=== PATIENT | female | born 1985 | race African-American/Black ===

== ENCOUNTER 2019-11-16 14:21 | Outpatient (CLI) | payer OTHER, SELFPAY ==
--- NOTE | ~2019-11-16 | MM_ITS ---
EXAMINATION: MM diagnostic danielle BI w debbie HISTORY: Bilateral axillary masses TECHNIQUE: Craniocaudal, mediolateral, and mediolateral oblique 3-D tomosynthesis images of the breas ts were performed and synthetic 2-D images were generated. CAD analysis was submitted and interpreted . COMPARISON: None, baseline BREAST PARENCHYMAL COMPOSITION: The breasts are almost entirely fatty. FINDINGS: There is no evidence of suspicious mass, calcification, or architectural distortion in eit her breast to suggest malignancy. There is no mammographic finding to account for the mildly enlarge d axillary lymph nodes seen on recent ultrasound. No definite mammographically detected axillary lym phadenopathy. IMPRESSION: 1. No mammographic evidence of malignancy or mammographic finding to account for the mildly enlarged axillary lymph nodes on recent ultrasound examination. Given the bilateral nature of the findings on ultrasound, benign process such as reactive lymph nodes is likely. Would recommend continued clinical follow-up with repeat ultrasound if necessary. If finding persists without resolution, ultrasound-gu ided fine-needle aspiration or core needle biopsy would be recommended to evaluate for malignancy suc h as lymphoma/leukemia. BI-RADS Category 1: Negative Reviewed, dictated and finalized at location A. WORKER IMPRESSION: 1. No mammographic evidence of malignancy or mammographic finding to account fo r the mildly enlarged axillary lymph nodes on recent ultrasound examination. Gi olegario the bilateral nature of the findings on ultrasound, benign process such as reactive lymph nodes is likely. Would recommend continued clinical follow-up wi th repeat ultrasound if necessary. If finding persists without resolution, ultr asound-guided fine-needle aspiration or core needle biopsy would be recommended to evaluate for malignancy such as lymphoma/leukemia. BI-RADS Category 1: Negative
== END 2019-11-16 14:22 ==
PROVIDERS: Visit Provider Obstetrics & Gynecology
DX: N63.10 Unspecified lump in the right breast, unspecified quadrant (principal); N63.20 Unspecified lump in the left breast, unspecified quadrant; R92.2 Inconclusive mammogram
CPT/HCPCS: 77062; 77066; G0279

== ENCOUNTER 2020-01-16 08:05 | Emergency (ER) | payer OTHER, SELFPAY ==
--- NOTE | 2020-01-16 08:19 | ED.GENADULT ---
HPI - General Adult General Chief complaint: Eye Problems Stated complaint: Swollen/Redness right eye Time Seen by Provider: 01/16/20 08:19 Source: patient Mode of arrival: ambulatory Limitations: no limitations History of Present Illness HPI narrative: 34-year-old female patient presents to the [facility] with complaints right upper lid eye pain since last night. Patient states it came on suddenly last night she just started feeling type of heaviness to the upper eyelid with some itchiness. Patient states that she wears glasses does not wear contacts. Patient states that she does not have any history of seasonal allergies and has not been outside at all recently. Patient states that she does not wear eye make-up. Patient states that she did take some Benadryl and some allergy medication along with a warm compress over yesterday. Patient states slightly blurred vision but no pain to the actual eye itself. No pain with movement to the eye. No discharge coming from the eye. Patient denies any fevers or flulike symptoms. Related Data Home Medications Medication Instructions Recorded Confirmed Loestrin 01/16/20 Allergies Allergy/AdvReac Type Severity Reaction Status Date / Time No Known Allergies Allergy Verified 01/16/20 08:28 Review of Systems Review of Systems: Narrative: CONSTITUTIONAL: Denies fever, chills, or sweats. EYES: Positive right eye visual changes, eyelid redness, denies discharge. ENT: Denies rhinorrhea, congestion, sore throat, or otalgia. CARDIOVASCULAR: Denies chest pain, palpitations, or edema. RESPIRATORY: Denies cough or dyspnea. GASTROINTESTINAL: Denies abdominal pain, nausea, vomiting, or diarrhea. GENITOURINARY: Denies dysuria or hematuria. SKIN: Denies rash or itching. MUSCULOSKELETAL: Denies back pain, joint pain, or myalgia. NEUROLOGIC: Denies headache, numbness, or weakness. PSYCHIATRIC: Denies anxiety or depression. [facility] Past Medical History Medical History (Updated 01/16/20 @ 08:33 by GRISEL Avalos) Depression Diabetes Social History Social History Smoking status: Never smoker Gender identity (if verbalized by the patient): Female Comments At the time of my signature I agree with nursing past medical history, surgical, social, and family history. There is no relevant family history pertinent to the presenting complaint. Exam Narrative: Exam Narrative: GENERAL: Well-appearing, well-nourished, and in no acute distress. HEAD: Normocephalic, atraumatic. EYES: PERRLA and EOM intact without limitation or complaint of pain, right upper eyelid swelling with erythema, warmth, no tenderness noted, no obvious deformity. No crusting or swelling.no tearing or draining.No photophobia. No nystagmus No FB or lesion on lid eversion. There does appear that there might be small stye forming to the lateral corner of the upper lid on the right eye. Corneas grossly clear, no obvious FB or hyphens/hypopyon. No injection to sclera. Lids and lashes clear. ENT: Nares clear, no rhinorrhea or epistaxis. Mucous membranes moist. NECK: Supple. No lymphadenopathy CHEST: Clear to auscultation. No respiratory distress. HEART: Regular rate and rhythm. No murmur heard. Normal peripheral pulses. ABDOMEN: Soft, nontender, nondistended, normal active bowel sounds. EXTREMITIES: Normal range of motion. No edema. SKIN: Warm, dry, no rash. NEURO: No focal deficits. Alert and oriented x3. Course Vital Signs Vital signs: Vital Signs Temperature 36.8 C 01/16/20 08:21 Pulse Rate 75 01/16/20 08:21 Respiratory Rate 16 01/16/20 08:21 Blood Pressure 125/76 01/16/20 08:21 Pulse Oximetry 100 01/16/20 08:21 Temperature 36.8 C 01/16/20 08:21 Pulse Rate 75 01/16/20 08:21 Respiratory Rate 16 01/16/20 08:21 Blood Pressure 125/76 01/16/20 08:21 Pulse Oximetry 100 01/16/20 08:21 Vital signs reviewed. Medical Decision Ma
[2020-01-16 08:21] VITALS: BP 125/76; PULSE 75; RESP 16; TEMP 36.8; O2SAT 100
== END 2020-01-16 08:36 | disposition home or self-care (01) ==
PROVIDERS: Emergency Provider Nurse Practitioner Family
DX: H00.021 Hordeolum internum right upper eyelid (principal)
CPT/HCPCS: 99213; G0463

== ENCOUNTER 2020-05-13 12:08 | Outpatient (CLI) | payer OTHER, SELFPAY ==
[2020-05-13 12:48] LABS: Alanine Aminotransferase 12 U/L (4-35); Albumin Level 4.6 g/dL (3.5-5.1); Alkaline Phosphatase 57 U/L (38-126); Amylase 91 U/L (30-110); Aspartate Amino Transferase 19 U/L (14-36); Bilirubin,Total 0.2 mg/dL (0.2-1.3); Lipase 109 U/L (23-300)
== END 2020-05-13 12:09 | disposition home or self-care (01) ==
PROVIDERS: Visit Provider Surgery
DX: K81.1 Chronic cholecystitis (principal)
CPT/HCPCS: 36415; 80076; 82150; 83690; 86850; 86900; 86901

== ENCOUNTER 2020-05-18 00:38 | Outpatient (CLI) | payer OTHER, SELFPAY ==
[2020-05-18 18:11] LABS: SARS-CoV-2 RNA PCR Negative
== END 2020-05-18 00:39 | disposition home or self-care (01) ==
LOC: ANHCOVIDDT 00:39
PROVIDERS: Visit Provider Surgery
DX: Z01.812 Encounter for preprocedural laboratory examination (principal); Z11.59 Encounter for screening for other viral diseases
CPT/HCPCS: 87635; C9803; U0003

== ENCOUNTER 2020-05-21 01:50 | Day surgery (SDC) | payer OTHER, SELFPAY ==
[2020-05-06 15:53] VITALS: BMI 32.5
[2020-05-21] VITALS (8 sets, daily range): BP systolic 96–129; BP diastolic 50–85; PULSE 65–102; RESP 10–18; TEMP 36.3; O2SAT 99–100
[2020-05-21] MEDS: ACETAMINOPHEN 500 MG TABLET 1000 MG PO (07:25)
[2020-05-21] MEDS: KETOROLAC 15 MG/ML VIAL (*BKC) IV PUSH (07:32)
[2020-05-21] MEDS: LACTATED RINGERS 1,000 ML 30 ML IV CONT ×2 (07:35→10:07)
--- NOTE | 2020-05-21 08:04 | P.PNAN_ITS ---
Anes - Initial Pre Proc Eval Procedure: Operation Date: 05/21/20 09:00 Proposed Procedures p Laparoscopic Cholecystectomy - Donna Bazzi MD Date/Time: 05/21/20 08:04 Surgeon: Donna Bazzi MD Pre Op Diagnosis: Chronic Cholecystitis Patient Data Age: 35 Gender: F Height: 5 ft 2 in Weight: 80.5 kg Allergies Allergy/AdvReac Type Severity Reaction Status Date / Time No Known Allergies Allergy Verified 05/21/20 07:40 Home Medications Medication Instructions Recorded Confirmed Type No Home Medications 05/06/20 05/21/20 History Patient hx anesthesia problems: none Family hx anesthesia problems: none [facility] Past Medical History Medical History Depression while Diabetes while Surgical History Surgical History History of Social History Social History Smoking status: Never smoker Alcohol intake: never Substance use: never Living arrangements: with family 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 Questions were solicited and answers provided to the satisfaction of the patient/family/POA.
--- NOTE | 2020-05-21 08:53 | WPDHPUPDATE1 ---
History and Physical Update Update Date/Time: 05/21/20 08:53 History and Physical has been reviewed, including an updated exam of the patient. There are NO changes in the patient's condition. Risks, benefits, and alternatives have been discussed and questions answered. Patient agrees to proceed with procedure.
--- NOTE | 2020-05-21 09:01 | PM.IMHP ---
H&P: HPI History of Present Illness Date/Time: 05/21/20 09:01 Chief complaint: Chronic Cholecystitis Narrative: Kael Caldwell is a 35 year old female that previously presented to office c/o postprandial RUQ/epigastric abd pain, assoc c nausea, bloating. Workup including imaging significant for cholecystitis, cholelithiasis. Pt c positive FH of biliary dz. Review of Systems Constitutional: Constitutional: Denies anorexia, Denies chills, Denies fatigue, Denies headache(s), Denies malaise, Denies poor appetite, Denies weight gain and Denies weight loss Eyes: Eyes: Denies change in vision ENT: Denies headache(s), Denies hearing loss and Denies sore throat Cardiovascular: Cardiovascular: Denies chest pain, Denies palpitations and Denies dyspnea Respiratory: Respiratory: Denies cough and Denies dyspnea Gastrointestinal: Gastrointestinal: Reports abdominal pain, Reports bloating, Denies change in stool character, Denies constipation, Denies diarrhea, Reports nausea and Denies vomiting Genitourinary: Genitourinary: Denies urinary frequency, Denies dysuria and Denies urinary urgency Musculoskeletal: Musculoskeletal: Reports no additional musculoskeletal complaints Integumentary/Breasts: Skin/Breast: Denies pruritus, Denies lesions and Denies wounds Neurologic: Denies confusion and Denies headache(s) Psychiatric: Psychiatric: Reports no additional psychiatric complaints and Denies confusion Endocrine: Endocrine: Reports no additional endocrine complaints, Denies fatigue and Denies palpitations Hematologic/Lymphatic: Hematologic/Lymphatic: Reports no additional hematologic/lymphatic complaints Allergic/Immunologic: Allergic/Immunologic: Reports no additional allergic/immunologic complaints [facility] Past Medical History Medical History Depression while Diabetes while Surgical History Surgical History History of Social History Social History Smoking status: Never smoker Alcohol intake: never Substance use: never Living arrangements: with family 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 Gender identity (if verbalized by the patient): Female Spiritual care concerns: No Meds Home Medications and Allergies Home Medications Medication Instructions Recorded Confirmed Type No Home Medications 05/06/20 05/21/20 History Allergies Allergy/AdvReac Type Severity Reaction Status Date / Time No Known Allergies Allergy Verified 05/21/20 07:40 Exam Const: General: cooperative, healthy appearing, no acute distress and well developed; No confusion Orientation/consciousness: patient oriented x3 and No confusion HENMT: Head: normal to inspection, normocephalic and atraumatic Mouth: Yes Normal oral and palatal mucosa present and Yes moist mucous membranes Teeth and gingiva: dentition normal Eyes: Conjunctivae: conjunctivae normal Pupils: Equal, round and reactive pupils present EOM: EOMs intact bilaterally Neck: Neck: normal visual inspection, full ROM, no lymphadenopathy, trachea midline and supple Lymphatic: no lymphadenopathy noted Chest: Chest palpation & inspection: normal inspection of the chest Resp: Effort & Inspection: normal respiratory effort Auscultation: clear to auscultation bilaterally Cardio: Jugular venous distension: no JVD Rate: regular rate Rhythm: regular rhythm Heart sounds: S1 normal heart sound present and S2 normal heart sound present Peripheral pulses: Peripheral pulses 2+ throughout GI: Inspection: normal to inspection GI Palp: Yes Soft to palpation, No Tenderness to palpation present (GI), No Guarding due to palpation present (GI), No Rigid due to palpation, No Hernia present and No Rebound tenderness present Percussion: Yes normal to percussion Auscult
[2020-05-21] MEDS: ceFAZolin 2 GM/D5W 50 ML 2 GM/50 ML BAG IVPB (09:05)
[2020-05-21] MEDS: BUPIVACAINE/EPINEPHRINE 0.5% 30 ML VIAL INFILTRATE (09:33)
--- NOTE | 2020-05-21 10:10 | PM.PROC ---
Procedure Note - Detailed Date of procedure: 05/21/20 Pre-op diagnosis: Chronic Cholecystitis Post-op diagnosis: same Procedure performed: laparoscopic cholecystectomy Description of procedure: The patient was taken to the operating room placed in the supine position. After adequate induction of general anesthesia, the patient was prepped and draped in normal sterile fashion. A time-out was then performed to verify the patient's identity as well as the procedure being performed. I then made a 5 mm incision in the infraumbilical region. Through this, a Veress needle was placed into the peritoneal cavity and CO2 gas was then insufflated. After adequate pneumoperitoneum was achieved, the Veress needle was removed and a 5 mm trocar was placed through this incision. I then placed the laparoscope through this trocar site and under direct visualization placed a further 12 mm subxiphoid port as well as 2 additional 5 mm ports in the right upper abdomen. The gallbladder was then identified and was noted to be slightly inflamed. I was able to place a grasper at the dome of the gallbladder and this was retracted anterior and cephalad up over the liver. A 2nd retractor was then placed at the infundibulum and retracted laterally, this allowed visualization of the triangle of Calot. I then was able to visualize the cystic duct in its entirety from its proximal insertion into the gallbladder, to its distal junction with the common hepatic/common bile duct junction. At this point, I carefully skeletonized the proximal cystic duct with the [place] dissector. I then clipped and transected the proximal cystic duct. Next I visualized the cystic artery. Again the artery was skeletonized, clipped, and transected. I then used the Bovie cautery to take down the peritoneal attachments of the gallbladder off the liver bed. Once the gallbladder specimen was completely detached, an endo-pouch was placed through the 12 mm port site. I then placed the gallbladder specimen into the Endo pouch and removed the endo-pouch from the 12 mm port site. The specimen will now be sent to pathology for further review. I then copiously irrigated the right upper quadrant. Hemostasis was noted in the liver bed, the clips were noted to be in good position on both the cystic duct stump and the cystic artery stump. No other pathology was noted in the right upper quadrant. I then moved the laparoscope to the subxiphoid port. No iatrogenic injury or other pathology was noted in the lower abdomen. At this point, the abdomen was desufflated and all ports removed. The fascia of the 12 mm subxiphoid port was closed with a 0 Vicryl figure of 8 suture. All port sites were then closed with 4.O Monocryl subcuticular sutures. Dermabond was placed on each incision. The patient tolerated the procedure well, was extubated in the operating room postoperative and will be transferred to the recovery room in stable condition. Implants: none Anesthesia: GETA Surgeon: Donna Bazzi MD Estimated blood loss (mL): 5 Drains: No Packing: No Pathology: yes Complications: No immediate complications Condition: stable Disposition: PACU Findings: mild cholecystitis
[2020-05-21] MEDS: ONDANSETRON INJ 4 MG/2 ML VIAL IV PUSH (12:14)
== END 2020-05-21 12:50 | disposition home or self-care (01) ==
PROVIDERS: PCP Physician Assistant; Visit Provider Surgery
PROC: 0FT44ZZ Resection of Gallbladder, Percutaneous Endoscopic Approach (ICD-10-PCS; CPT 47562; principal; 2020-05-21 09:00)
DX: K81.1 Chronic cholecystitis (principal); E66.9 Obesity, unspecified; Z68.32 Body mass index [BMI] 32.0-32.9, adult
CPT/HCPCS: 47562; 88304; A9270; J0330; J0690; J1100; J1885; J2250; J2405; J2704; J2710; J3010; J7030; J7120

== ENCOUNTER → 2020-11-06 16:02 | Outpatient (CLI) | payer OTHER, SELFPAY ==
--- NOTE | ~2020-11-06 | XR_ITS ---
XR finger 3rd LT min 2V DATE: 11/06/2020 16:42 INDICATION: Pain and swelling of third digit TECHNIQUE: 4 views COMPARISON: None FINDINGS: No fracture or dislocation, periosteal reaction or bone destruction. IMPRESSION: Negative Reviewed, dictated and finalized at location A. LE PASTER IMPRESSION: Negative
== END ==
PROVIDERS: PCP Physician Assistant; Visit Provider Physician Assistant
DX: M79.89 Other specified soft tissue disorders (principal)
CPT/HCPCS: 73140

== ENCOUNTER 2020-11-10 21:00 | Emergency (ER) | payer OTHER, SELFPAY ==
[2020-11-10 21:03] VITALS: BP 131/70; PULSE 92; RESP 16; TEMP 36.4; O2SAT 99
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
[2020-11-10 22:02] VITALS: BP 124/69; PULSE 86; RESP 16; O2SAT 100
== END 2020-11-10 22:10 | disposition home or self-care (01) ==
LOC: ANHED 21:51
PROVIDERS: Emergency Provider Emergency Medicine; PCP Physician Assistant
DX: S46.819A Strain of other muscles, fascia and tendons at shoulder and upper arm level, unspecified arm, initial encounter (principal); V43.52XA Car driver injured in collision with other type car in traffic accident, initial encounter
CPT/HCPCS: 99283

== ENCOUNTER 2021-02-06 16:29 | Emergency (ER) | payer OTHER, SELFPAY ==
[2021-02-06 16:55] VITALS: BP 120/64; PULSE 76; RESP 16; TEMP 36.6; O2SAT 100
--- NOTE | 2021-02-06 17:21 | ED.URI ---
HPI - URI/Sore Throat General Chief Complaint: Upper Respiratory Infection Stated Complaint: cold/flu symptoms Time Seen by Provider: 02/06/21 17:21 Source: patient and RN notes reviewed Mode of arrival: ambulatory Limitations: no limitations History of Present Illness HPI Narrative: 32-year-old female presents concern for sore throat, hoarse voice, sinus drainage, cough, general malaise that started today. Reports her child had similar symptoms and was seen in this clinic yesterday. Reports she has been using ibuprofen and tea for her throat discomfort. She denies fever, body aches, chills, sweats, loss of sense of taste or smell, shortness of breath. Denies any known exposure to Covid or strep throat. MD elicited complaint: cough Related Data Home Medications Medication Instructions Recorded Confirmed ergocalciferol (vitamin D2) 1,250 mcg PO 2XW 02/06/21 02/06/21 naproxen 500 mg PO BID PRN 02/06/21 02/06/21 norethindrone-e.estradiol-iron 1 tablet PO DAILY 02/06/21 02/06/21 [10/30 (28)] Allergies Allergy/AdvReac Type Severity Reaction Status Date / Time No Known Allergies Allergy Verified 02/06/21 17:21 Review of Systems Review of Systems: Narrative: CONSTITUTIONAL: Reports malaise. Denies chills, sweats, or fever. EYES: Denies visual changes, redness, or discharge. ENT: Reports rhinorrhea, congestion, sore throat. Denies sinus pain, otalgia CARDIOVASCULAR: Denies chest pain, palpitations, or edema. RESPIRATORY: Reports cough. Denies dyspnea. GASTROINTESTINAL: Denies abdominal pain, nausea, vomiting, diarrhea SKIN: Denies rash or itching. MUSCULOSKELETAL: Denies myalgia. NEUROLOGIC: Denies headache. 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 There is no relevant family history pertinent to the presenting complaint Exam Narrative: Exam Narrative: GENERAL: Well-appearing, well-nourished, and in no acute distress. HEAD: Normocephalic EYES: PERRLA, conjunctivae clear ENT: Nares clear, turbinates edematous and erythematous, clear discharge. Mucous membranes moist. TM pearly gulilen with dull light reflex bilaterally; no tragal tenderness. Oropharynx erythematous without lesions. Tonsils enlarged and without exudate, no drooling, mild hoarseness, no trismus, uvula midline. NECK: Supple. No lymphadenopathy CHEST: Clear to auscultation, breath sounds equal. No wheezing, rhonchi, rales, or stridor. No respiratory distress, speaks in full sentences. HEART: Regular rate and rhythm. No murmur heard. SKIN: Warm, dry, no rash. NEURO: Alert and oriented x3. PSYCH: Normal mood and affect Course Course Emergency Course: Patient is aware of diagnosis, understands and agrees to treatment plan. Anticipatory guidance given. Patient agrees to follow-up as directed and is aware of reasons to seek care at the emergency department. Portions of this record may have been created with voice recognition software Vital Signs Vital signs: Vital Signs Temperature 97.9 F 02/06/21 16:55 Pulse Rate 76 02/06/21 16:55 Respiratory Rate 16 02/06/21 16:55 Blood Pressure 120/64 02/06/21 16:55 Pulse Oximetry 100 02/06/21 16:55 Temperature 97.9 F 02/06/21 16:55 Pulse Rate 76
[2021-02-07 14:59] LABS: SARS-CoV-2 RNA PCR Negative
== END 2021-02-06 17:56 | disposition home or self-care (01) ==
PROVIDERS: Emergency Provider Nurse Practitioner
DX: J06.9 Acute upper respiratory infection, unspecified (principal); Z20.822 Contact with and (suspected) exposure to COVID-19
CPT/HCPCS: 87081; 87880; 99213; C9803; G0463; U0003; U0005

== ENCOUNTER 2021-10-13 09:23 | Emergency (ER) | payer OTHER, SELFPAY ==
[2021-10-13 09:34] VITALS: PULSE 74; RESP 16; TEMP 36.1; O2SAT 100
[2021-10-13 09:35] VITALS: BP 129/70; PULSE 74; RESP 16; TEMP 36.1; O2SAT 100
--- NOTE | 2021-10-13 10:26 | ED.EYEPROB ---
HPI - Eye Problem General Chief complaint: Eye Problems Stated complaint: Right Eye Pain Time Seen by Provider: 10/13/21 10:26 Source: patient, RN notes reviewed and old records reviewed Mode of arrival: ambulatory Limitations: no limitations History of Present Illness HPI Narrative: 36-year-old female presents to the [facility] with complaints of right eye pain for 2 days. Redness and swelling noted to the upper eyelid. No treatment prior to arrival. No blurry vision or change in vision. No trauma to the eye. MD chief complaint: eye pain and eye redness Related Data Home Medications Medication Instructions Recorded Confirmed ergocalciferol (vitamin D2) 1,250 mcg PO 2XW 02/06/21 10/13/21 naproxen 500 mg PO BID PRN 02/06/21 10/13/21 norethindrone-e.estradiol-iron 1 tablet PO DAILY 02/06/21 10/13/21 [10/30 (28)] Allergies Allergy/AdvReac Type Severity Reaction Status Date / Time No Known Allergies Allergy Verified 10/13/21 10:38 Review of Systems Review of Systems: All systems reviewed & are unremarkable except as noted in HPI and below Constitutional: Constitutional: Reports no additional constitutional complaints, Denies chills and Denies fever(s) Eyes: Eyes: Reports as per HPI, Denies change in vision and Denies photophobia Comments: Right upper eyelid redness, swelling ENT: Reports system reviewed and no additional complaints, except as documented Cardiovascular: Cardiovascular: Reports no additional cardiovascular complaints and Denies chest pain Respiratory: Respiratory: Reports no additional respiratory complaints Gastrointestinal: Gastrointestinal: Reports no additional gastrointestinal complaints Musculoskeletal: Musculoskeletal: Reports no additional musculoskeletal complaints Integumentary/Breasts: Skin/Breast: Reports system reviewed and no additional complaints, except as docu Neurologic: Reports system reviewed and no additional complaints, except as documented Psychiatric: Psychiatric: Reports no additional psychiatric complaints Allergic/Immunologic: Allergic/Immunologic: Reports no additional allergic/immunologic complaints [facility] Past Medical History Medical History (Updated 10/16/21 @ 08:40 by Cari Garcia) Depression while Diabetes while Surgical History Surgical History History of Hx laparoscopic cholecystectomy Social History Social History Smoking status: Never smoker Alcohol intake: never Substance use: never 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 There is no relevant family history pertinent to the patient complaint. Exam Const: General: healthy appearing, no acute distress and alert Nutritional Appearance: well nourished Orientation/consciousness: patient oriented x3 Limitations: no limitations HENMT: Head: normal to inspection Eyes: Conjunctivae: conjunctival abnormality right conjunctival injection (Stye noted) localized; without discharge Pupils: Equal, round and reactive pupils present EOM: EOMs intact bilaterally Direct Ophthalmoscopy: no photophobia Neck: Neck: normal visual inspection, no lymphadenopathy and no meningeal signs Chest: Chest palpation & inspection: normal inspection of the chest Resp: Effort & Inspection: normal respiratory effort Auscultation: clear to auscultation bilaterally Cardio: Rate: regular rate Rhythm: regular rhythm : General: Yes no CVA tenderness Back/Spine/Pelvis: Back: no CVA tenderness Skin: General skin exam: normal color Neuro: General: patient oriented x3, moves all extremities, no meningeal signs and no focal motor defic
== END 2021-10-13 10:50 | disposition home or self-care (01) ==
PROVIDERS: Emergency Provider Nurse Practitioner; PCP Physician Assistant
DX: H00.011 Hordeolum externum right upper eyelid (principal); H10.9 Unspecified conjunctivitis; L03.90 Cellulitis, unspecified; K21.9 Gastro-esophageal reflux disease without esophagitis
CPT/HCPCS: 99213; G0463

== ENCOUNTER 2022-03-14 08:37 | Emergency (ER) | payer OTHER, SELFPAY ==
[2022-03-14 08:52] VITALS: BP 125/76; PULSE 91; RESP 16; TEMP 36.8; O2SAT 99
--- NOTE | 2022-03-14 09:36 | ED.URI ---
HPI - URI/Sore Throat General Chief Complaint: Upper Respiratory Infection Stated Complaint: SORE THROAT Time Seen by Provider: 03/14/22 09:36 Source: patient Mode of arrival: ambulatory Limitations: no limitations History of Present Illness HPI Narrative: 36-year-old female presents with complaint of cough, sore throat, hoarse voice for 3 to 4 days. Afebrile. No shortness of breath or chest pain. Taking [id number] medications to treat cough. No other symptoms. All systems reviewed and negative except as noted above. Related Data Home Medications Medication Instructions Recorded Confirmed ergocalciferol (vitamin D2) 1,250 1,250 mcg PO 2XW 02/06/21 03/14/22 mcg (50,000 unit) capsule Allergies Allergy/AdvReac Type Severity Reaction Status Date / Time No Known Allergies Allergy Verified 03/14/22 09:45 Review of Systems Review of Systems: CONSTITUTIONAL: Denies fever, chills, or sweats. EYES: Denies visual changes, redness, or discharge. ENT: Denies rhinorrhea, congestion. Reports sore throat. Denies otalgia. CARDIOVASCULAR: Denies chest pain, palpitations, or edema. RESPIRATORY: Reports cough. Denies dyspnea. GASTROINTESTINAL: Denies abdominal pain, nausea, vomiting, or diarrhea. GENITOURINARY: Denies dysuria or hematuria. SKIN: Denies rash or itching. MUSCULOSKELETAL: Denies back pain, joint pain, or myalgia. NEUROLOGIC: Denies headache, numbness, or weakness. PSYCHIATRIC: Denies anxiety or depression. All other systems reviewed are negative, except as documented in HPI. 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 There is no relevant family history pertinent to the presenting complaint. Exam Narrative: GENERAL: This is a well-nourished, well-developed patient, in no apparent distress. HEAD: normocephalic, atraumatic. EYES: PERRL. Sclera clear/white. Vision is grossly intact. EARS: External ears normal, auditory canals clear and without drainage, mild fluid to bilateral TMs without erythema. NOSE: External nose normal with clear nasal drainage without erythema to nares. THROAT: Mucous membranes moist, clear postnasal drainage without erythema. Hoarse voice noted. No tonsillar swelling. NECK: Neck supple, non-tender without lymphadenopathy, masses or thyromegaly. CARDIOVASCULAR: Regular rate and rhythm without murmurs, gallops, or rubs. RESPIRATORY: Clear to auscultation. Breath sounds equal bilaterally. No wheezes, rales, or rhonchi. SKIN: warm, Dry, intact with no suspicious lesions or rash, good texture and turgor. NEURO: awake, alert, and oriented to person, place and time. There were no obvious focal neurologic abnormalities. EXTREMITIES: Normal range of motion to all extremities. Course Course Level of Care: Express Care Visit Vital Signs Vital signs: Vital Signs Temperature 36.8 C 03/14/22 08:52 Pulse Rate 91 03/14/22 08:52 Respiratory Rate 16 03/14/22 08:52 Blood Pressure 125/76 03/14/22 08:52 Pulse Oximetry 99 03/14/22 08:52 Oxygen Delivery Room Air 03/14/22 08:52 Temperature 36.8 C 03/14/22 08:52 Pulse Rate 91 03/14/22 08:52 Respiratory Rate 16 03/14/22 08:52 Blood Pressure 125/76 03/14/22 08:52 Pulse Oximetry 99 03/14/22 08:52 Oxygen Delivery Room Air 03/14/22 08:52 R
== END 2022-03-14 10:00 | disposition home or self-care (01) ==
PROVIDERS: Emergency Provider Nurse Practitioner Family
DX: J04.0 Acute laryngitis (principal)
CPT/HCPCS: 99213; G0463

== ENCOUNTER 2022-04-05 11:05 | Emergency (ER) | payer OTHER, SELFPAY ==
[2022-04-05 11:12] VITALS: BP 106/73; PULSE 74; RESP 18; TEMP 36.9; O2SAT 100
--- NOTE | 2022-04-05 11:43 | ECG_ITS ---
Measurements Intervals [place] Rate: 69 P: 54 NC: 161 QRS: 15 QRSD: 86 T: 7 QT: 405 QTc: 435 Interpretive Statements SINUS RHYTHM WITH SINUS ARRHYTHMIA LOW QRS VOLTAGE IN PRECORDIAL LEADS [QRS DEFLECTION < 1.0 mV IN CHEST LEADS] OTHERWISE WITHIN NORMAL LIMITS NO PREVIOUS ECG AVAILABLE FOR COMPARISON Electronically Signed On 04-06-2022 7:13:46 CDT by Jerome Llanes M.D.
--- NOTE | 2022-04-05 11:59 | ED.GENADULT ---
HPI - General Adult General Chief complaint: Dizziness <CIERRA Cuenca Last Filed: 04/05/22 20:02> Stated complaint: breast lump <CIERRA Cuenca Last Filed: 04/05/22 20:02> Time Seen by Provider: 04/05/22 11:18 <CIERRA Cuenca Last Filed: 04/05/22 20:02> Source: patient <CIERRA Cuenca Last Filed: 04/05/22 20:02> Mode of arrival: ambulatory <CIERRA Cuenca Last Filed: 04/05/22 20:02> Limitations: no limitations <CIERRA Cuenca Last Filed: 04/05/22 20:02> History of Present Illness HPI narrative: Patient is a 37 y/o female who presents to the ED with c/o R breast pain and dizziness. Patient reports she first noticed a small nonpainful lump in her R upper breast yesterday. She did not think much of it at first. Today, she reports having pain associated with some redness noted as well, which prompted her to come to the ED. She denies any nipple discharge. Patient also reports having mild dizziness today, described as a lightheadedness. She notes she is currently starting her menstrual cycle and has been on the Xulane contraceptive patch for the past 3 weeks. She placed a new patch today. She is unsure if dizziness could be a side effect of this. She denies any vision changes, headache, syncope, focal weakness, numbness, tingling. No chest pain, difficulty breathing, fever, chills. Patient had a mammogram in May 2021. She was found to have additional breast tissue in her axillary regions, but the testing was otherwise negative. OBGYN is Dr. Hugo. <CIERRA Cuenca Last Filed: 04/05/22 20:02> Related Data Home medications: Home Medications Medication Instructions Recorded Confirmed ergocalciferol (vitamin D2) 1,250 1,250 mcg PO 2XW 02/06/21 03/14/22 mcg (50,000 unit) capsule <CIERRA Cuenca Last Filed: 04/05/22 20:02> Allergies/adverse reactions: Allergies Allergy/AdvReac Type Severity Reaction Status Date / Time No Known Allergies Allergy Verified 04/05/22 11:20 <Virginia Calhoun PA-C - Last Filed: 04/05/22 20:02> Review of Systems Review of Systems: CONSTITUTIONAL: Denies fever, chills, or sweats. EYES: Denies visual changes. CARDIOVASCULAR: Denies chest pain. RESPIRATORY: Denies dyspnea. BREAST: Reports painful lump to R breast, overlying redness. Denies nipple discharge. GASTROINTESTINAL: Denies abdominal pain, nausea, vomiting. SKIN: Denies rash or itching. NEUROLOGIC: Reports lightheadedness. Denies headache, numbness, tingling, syncope, or focal weakness. 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 while <Virginia Calhoun PA-C - Last Filed: 04/05/22 20:02> Surgical History Surgical History: Surgical History History of Hx laparoscopic cholecystectomy <Virginia Calhoun PA-C - Last Filed: 04/05/22 20:02> Social History Social History: Social History Smoking status: Never smoker Alcohol intake: never Substance use: never 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 HEAD: Normocephalic, atraumatic. EYES: EOMI, PERRLA, conjunctiva clear. NECK: Supple. No adenopathy, no masses. BREAST: Small irregular area of erythema, tenderness over R upper breast above areola in region of 12oclock position. Small area of induration und
[2022-04-05 12:05] LABS: Basophils Percent Auto 0.5 % (0.2-1.2); Eosinophils Absolute Auto 0.3 K/mm3 (0-0.3); Eosinophils Percent Auto 6.5 % (0-4.4); Hematocrit 37.2 % (37.0-47.0); Hemoglobin 12.9 g/dL (12.0-15.0); Mean Corpuscular HGB Conc 34.7 g/dl (32-36); Mean Corpuscular Hemoglobin 27.2 pg (26-34); Mean Corpuscular Volume 78.3 fl (80-100); Mean Platelet Volume 10.2 fl (7.4-10.4); Monocytes Absolute Auto 0.4 K/mm3 (0.1-0.6); Monocytes Percent Auto 9.4 % (2.6-8.5); Neutrophils Absolute Auto 1.8 K/mm3 (1.3-6.7); Neutrophils Percent Auto 42.6 % (45.5-73.1); Platelet Count Result 327 k/mm3 (150-375); Red Blood Count 4.75 M/mm3 (4.2-5.4); Red Cell Distribution Width 13.4 % (11.5-14.5); White Blood Count 4.2 K/mm3 (4.5-10.0)
[2022-04-05 12:16] LABS: Alanine Aminotransferase 13 U/L (6-35); Albumin Level 4.3 g/dL (3.5-5.1); Alkaline Phosphatase 56 U/L (38-126); Anion Gap 7 mmol/L (8-16); Aspartate Amino Transferase 18 U/L (14-36); Bilirubin,Total 0.2 mg/dL (0.2-1.3); Blood Urea Nitrogen 9 mg/dL (7-17); Calcium 9.2 mg/dL (8.4-10.2); Carbon Dioxide 28 mmol/L (22-30); Chloride 105 mmol/L (98-107); Estimated CRCL calculation 70 ml/min; Estimated Glomerular Filt Rate > 60; Glucose 98 mg/dL (65-110); Potassium 4.1 mmol/L (3.4-5.0); Sodium 140 mmol/L (137-145)
[2022-04-05 12:26] LABS: Troponin I < 0.012 ng/mL (0.000-0.034)
[2022-04-05 12:34] LABS: Appearance Urine Clear (Clear); Bilirubin Urine Negative (Negative); Blood Urine 2+ (Negative); Color Urine Yellow (Yellow); Glucose Urine UA Negative (Negative); Ketones Urine Negative (Negative); Leukocyte Esterase Ur Negative LEU/UL (Negative); Nitrate Urine Negative (Negative); Protein Urine Negative (Negative); Specific Grav Ur 1.015 (1.001-1.035); Urobilinogen Urine 0.2 mg/dL (<2.0)
[2022-04-05 12:37] LABS: Bacteria Urine Trace /hpf; Mucus Urine Rare /lpf; Squamous Epithelial Cell Urine Occasional /hpf (Few); WBC Urine 0-3 /hpf
[2022-04-05 12:40] LABS: Add Urine Microscopic? YES
[2022-04-05] MEDS: SODIUM CHLORIDE 0.9% IV 1,000 ML 999 ML IV CONT (12:54)
[2022-04-05 13:00] VITALS: BP 106/59; BP 113/73; BP 114/59; BP 119/74; PULSE 63; PULSE 64; PULSE 65; PULSE 69; RESP 18; O2SAT 100
[2022-04-05 13:56] VITALS: BP 122/78; PULSE 69; RESP 16; O2SAT 100
[2022-04-05 15:26] VITALS: BP 117/83; PULSE 75; RESP 18; O2SAT 100
== END 2022-04-05 15:28 | disposition home or self-care (01) ==
PROVIDERS: Physician Assistant; Emergency Provider Emergency Medicine; PCP Physician Assistant
DX: N61.0 Mastitis without abscess (principal)
CPT/HCPCS: 36415; 80053; 81001; 84484; 85025; 93005; 96361; 96365; 99284; J0131; J7030

== ENCOUNTER 2022-05-08 08:17 | Emergency (ER) | payer OTHER, SELFPAY ==
[2022-05-08 08:25] VITALS: BP 122/84; PULSE 75; RESP 16; TEMP 36.7; O2SAT 100
--- NOTE | 2022-05-08 08:28 | ED.EYEPROB ---
HPI - Eye Problem General Chief complaint: Eye Problems Stated complaint: Eye Pain Time Seen by Provider: 05/08/22 08:39 Source: patient and RN notes reviewed Mode of arrival: ambulatory Limitations: no limitations History of Present Illness HPI Narrative: 37-year-old female presents concern for right upper eyelid swelling and itching. She reports she woke up overnight with her eye itching and noticed that it was swollen. She reports history of an infected stye. She denies any current pain, drainage from the eye, vision changes. She wears glasses, does not wear mascara or false eyelashes. She denies any known allergy triggers, reports she can be with pecans in it before bed however she has not ever had an allergic reaction to pecans. She reports she used a warm compress with some relief of the swelling MD chief complaint: other (Eyelid swelling) Related Data Home Medications Medication Instructions Recorded Confirmed ergocalciferol (vitamin D2) 1,250 1,250 mcg PO 2XW 02/06/21 05/08/22 mcg (50,000 unit) capsule fluconazole 200 mg tablet 200 mg DAILY 05/08/22 05/08/22 norelgestromin 150 mcg-e.estradiol 1 patch DAILY 05/08/22 05/08/22 35 mcg/24 hr weekly transderm patch (Zafemy) triamcinolone acetonide 0.1 % 1 applic topical DAILY 05/08/22 05/08/22 topical cream Allergies Allergy/AdvReac Type Severity Reaction Status Date / Time No Known Allergies Allergy Verified 05/08/22 08:29 Review of Systems Review of Systems: CONSTITUTIONAL: Denies malaise, chills, sweats, or fever. EYES: Denies visual changes. Denies redness, pain, discharge. Reports right upper eyelid swelling and itching ENT: Denies rhinorrhea, congestion, sinus pain, otalgia or sore throat. SKIN: Denies rash or itching. NEUROLOGIC: Denies numbness, weakness, or headache. PSYCHIATRIC: Denies anxiety or depression. 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 There is no relevant family history pertinent to the presenting complaint Exam Narrative: GENERAL: Well-appearing, well-nourished, and in no acute distress. HEAD: Normocephalic, atraumatic. EYES: PERRLA and EOMI. No nystagmus. Bilateral conjunctivae and sclera clear. Right upper eyelid with soft edema, no nodules, tenderness noted. Left upper and lower eyelid unremarkable, no periorbital edema noted ENT: Nares clear, turbinates pink, no rhinorrhea or epistaxis. Mucous membranes moist. TM pearly guillen with sharp light reflex bilaterally; no tragal tenderness. NECK: Supple. CHEST: No respiratory distress. Speaks in full sentences. HEART: Regular rate and rhythm. SKIN: Warm, dry, no visible rash. NEURO: Alert and oriented x3. PSYCH: Normal mood and affect Course Course Emergency Course: Patient is aware of diagnosis, understands and agrees to treatment plan. Anticipatory guidance given. Patient agrees to follow-up as directed and is aware of reasons to seek care at the emergency department. Portions of this record may have been created with voice recognition software Level of Care: Express Care Visit Vital Signs Vital signs: Vital Signs Temperature 98.0 F 05/08/22 08:25 Pulse Rate 75 05/08/22 08:25 Respiratory Rate 16 05/08/22 08:25 Blood Pr
== END 2022-05-08 08:52 | disposition home or self-care (01) ==
PROVIDERS: Emergency Provider Nurse Practitioner
DX: H02.841 Edema of right upper eyelid (principal); T78.40XA Allergy, unspecified, initial encounter
CPT/HCPCS: 99213; G0463

== ENCOUNTER 2022-05-31 08:16 | Emergency (ER) | payer OTHER, SELFPAY ==
[2022-05-31 08:23] VITALS: BP 123/76; PULSE 78; RESP 16; TEMP 36.4; O2SAT 100
--- NOTE | 2022-05-31 08:25 | ED.URI ---
HPI - URI/Sore Throat General Chief Complaint: Upper Respiratory Infection Stated Complaint: Sore throat, ear pain, cough Source: patient, RN notes reviewed and old records reviewed Mode of arrival: ambulatory Limitations: no limitations History of Present Illness HPI Narrative: 37-year-old female who presents to [facility] care with complaints of bilateral ear pain, sore throat, and cough for the past with sinus congestion and drainage for the past 4days. Patient reports cough is dry has not noticed any production of cough and tends to be worse in the mornings voice is hoarse and raspy. Patient reports she did a home COVID test this morning which was negative. Patient states she has taken Sudafed generic cold medication daytime and nighttime and also has used some Zyrtec MD elicited complaint: cough, sore throat, rhinorrhea, nasal congestion and other (Bilateral ear pain) Onset (ago): day(s) (4) Pain scale (0-10): 3 Treatments prior to arrival: cold medicine and other (Zyrtec) Related Data Home Medications Medication Instructions Recorded Confirmed ergocalciferol (vitamin D2) 1,250 1,250 mcg PO 2XW 02/06/21 05/31/22 mcg (50,000 unit) capsule norelgestromin 150 mcg-e.estradiol 1 patch DAILY 05/08/22 05/31/22 35 mcg/24 hr weekly transderm patch (Zafemy) triamcinolone acetonide 0.1 % 1 applic topical DAILY 05/08/22 05/31/22 topical cream Allergies Allergy/AdvReac Type Severity Reaction Status Date / Time No Known Allergies Allergy Verified 05/31/22 08:25 Review of Systems Review of Systems: CONSTITUTIONAL: Denies fever, chills, or sweats. EYES: Denies visual changes, redness, or discharge. ENT: Positive rhinorrhea, congestion, sore throat, bilateralotalgia. CARDIOVASCULAR: Denies chest pain, palpitations, or edema. RESPIRATORY: Positive for dry cough denies dyspnea. GASTROINTESTINAL: Denies abdominal pain, nausea, vomiting, or diarrhea. GENITOURINARY: Denies dysuria or hematuria. SKIN: Denies rash or itching. MUSCULOSKELETAL: Denies back pain, joint pain, or myalgia. NEUROLOGIC: Denies headache, numbness, or weakness. PSYCHIATRIC: Denies anxiety or depression. 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 There is no relevant family history pertinent to the presenting complaint Exam Narrative: GENERAL: Well-appearing, well-nourished, and in no acute distress. HEAD: Normocephalic, atraumatic. EYES: PERRLA and EOMI. ENT: Nares red with clear rhinorrhea no epistaxis. Mucous membranes moist. Left TM red bulging with no drainage in ear canal,right TM normal with good light reflex, throat red no lesions or exudate no acute tonsil swelling postnasal drainage noted NECK: Supple. No lymphadenopathy CHEST: Clear to auscultation. No respiratory distress. SaO2 100% on room air, no wheezing noted, no tachypnea, dry cough noted HEART: Regular rate and rhythm. No murmur heard. Normal peripheral pulses. ABDOMEN: Soft, nontender, nondistended, normal active bowel sounds. EXTREMITIES: Normal range of motion. No edema. SKIN: Warm, dry, no rash. NEURO: No focal deficits. Alert and oriented x3. Course Course Level of Care: Express Care Visit Vital Signs Vital signs: Vital Signs
== END 2022-05-31 08:51 | disposition home or self-care (01) ==
PROVIDERS: Emergency Provider Registered Nurse; PCP Physician Assistant
DX: H66.92 Otitis media, unspecified, left ear (principal); J06.9 Acute upper respiratory infection, unspecified
CPT/HCPCS: 99213; G0463

== ENCOUNTER 2022-11-30 14:21 | Outpatient (CLI) | payer OTHER, SELFPAY ==
--- NOTE | ~2022-11-30 | MMUS_ITS ---
EXAMINATION: MM diagnostic danielle BI w debbie, US breast BI complete HISTORY: Bilateral axillary masses, larger since 2019 according to patient TECHNIQUE: ML, MLO and CC 3-D tomosynthesis images of each breast were performed and synthetic 2-D im ages were generated. Spot compression images of the axillary areas and MLO projection. CAD analysis w as submitted and interpreted. High resolution complete bilateral breast ultrasound examinations inclu ding all 4 quadrants and bilateral axillary ultrasound examination was performed. COMPARISON: November 16, 2019 bilateral diagnostic mammogram BREAST PARENCHYMAL COMPOSITION: There are scattered areas of fibroglandular density. FINDINGS: MAMMOGRAPHIC FINDINGS: No suspicious mass or architectural distortion, malignant calcification, skin thickening or retractio n or significant new or developing density is detected. Relatively stable appearing bilateral circumscribed axillary lymph nodes. ULTRASOUND: No suspicious mass or shadowing, cyst or other significant abnormality of either breast is evident. B enign-appearing axillary lymph nodes. IMPRESSION: 1. No mammographic evidence of malignancy 2. Routine mammographic screening beginning at age 40 is recommended BI-RADS Category 2: Benign finding(s). Reviewed, dictated and finalized at location A. NT SUPPORT MANAGER IMPRESSION: 1. No mammographic evidence of malignancy 2. Routine mammographic screening beginning at age 40 is recommended BI-RADS Category 2: Benign finding(s).
== END 2022-11-30 14:22 ==
PROVIDERS: PCP Physician Assistant; Visit Provider Nurse Practitioner
DX: N63.20 Unspecified lump in the left breast, unspecified quadrant (principal); N63.10 Unspecified lump in the right breast, unspecified quadrant
CPT/HCPCS: 76641; 77062; 77066; G0279

== ENCOUNTER 2023-01-14 08:05 | Emergency (ER) | payer OTHER, SELFPAY ==
[2023-01-14 08:25] VITALS: BP 126/68; PULSE 95; RESP 14; TEMP 36.6; O2SAT 100
--- NOTE | 2023-01-14 08:28 | ED.URI ---
HPI - URI/Sore Throat General Chief Complaint: Upper Respiratory Infection Stated Complaint: Sinus/Throat/Ears Irritation/Cough Time Seen by Provider: 01/14/23 08:38 Source: patient and RN notes reviewed Mode of arrival: ambulatory Limitations: no limitations History of Present Illness HPI Narrative: 37-year-old female presents with concern for 5 day history of nasal congestion, sore throat, ear pain, persistent cough, burning chest. She reports symptoms have gotten worse over the week. She reports she works from home, her 3-year-old son goes to daycare. She reports she bought multiple cold medicines that she has been taking without relief. She denies shortness of breath, chills, sweats, fever MD elicited complaint: cough and sore throat Related Data Home Medications Medication Instructions Recorded Confirmed ergocalciferol (vitamin D2) 1,250 1,250 mcg PO 2XW 02/06/21 01/14/23 mcg (50,000 unit) capsule norelgestromin 150 mcg-e.estradiol 1 patch transdermal WEEKLY 05/08/22 01/14/23 35 mcg/24 hr weekly transderm patch (Zafemy) azathioprine 50 mg tablet 50 mg PO DAILY 01/14/23 01/14/23 hydroxychloroquine 200 mg tablet 200 mg PO BID 01/14/23 01/14/23 Allergies Allergy/AdvReac Type Severity Reaction Status Date / Time No Known Allergies Allergy Verified 01/14/23 08:10 Review of Systems Review of Systems: CONSTITUTIONAL: Reports malaise. Denies chills, sweats, or fever. EYES: Denies visual changes, redness, or discharge. ENT: Reports rhinorrhea, congestion, otalgia and sore throat. CARDIOVASCULAR: Denies chest pain, palpitations, or edema. RESPIRATORY: Reports cough. Denies dyspnea. GASTROINTESTINAL: Denies abdominal pain, nausea, vomiting, diarrhea SKIN: Denies rash or itching. MUSCULOSKELETAL: Reports myalgia. NEUROLOGIC: Denies headache. 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 There is no relevant family history pertinent to the presenting complaint Exam Narrative: GENERAL: Nontoxic appearing and in no acute distress. HEAD: Normocephalic EYES: PERRLA, conjunctivae clear ENT: Nares clear, turbinates edematous and erythematous, clear discharge. Mucous membranes moist. TM pearly guillen with dull light reflex bilaterally; no tragal tenderness. Oropharynx not erythematous without lesions. Tonsils not enlarged and without exudate, no drooling, no hoarseness, no trismus, uvula midline. NECK: Supple. No lymphadenopathy CHEST: Clear to auscultation, breath sounds equal. No wheezing, rhonchi, rales, or stridor. No respiratory distress, speaks in full sentences. HEART: Regular rate and rhythm. No murmur heard. SKIN: Warm, dry, no rash. NEURO: Alert and oriented x3. PSYCH: Normal mood and affect Course Course Emergency Course: Patient is aware of diagnosis, understands and agrees to treatment plan. Anticipatory guidance given. Patient agrees to follow-up as directed and is aware of reasons to seek care at the emergency department. Portions of this record may have been created with voice recognition software Level of Care: Express Care Visit Vital Signs Vital signs: Vital Signs Temperature 98 F
== END 2023-01-14 08:54 | disposition home or self-care (01) ==
PROVIDERS: Emergency Provider Nurse Practitioner; PCP Physician Assistant
DX: U07.1 COVID-19 (principal); J02.0 Streptococcal pharyngitis
CPT/HCPCS: 87081; 87147; 87426; 87804; 87880; 99213; C9803; G0463

== ENCOUNTER 2023-09-04 18:27 | Emergency (ER) | payer OTHER, SELFPAY ==
--- NOTE | 2023-09-04 18:29 | ED.DENTAL ---
HPI - Dental/Oral General Chief complaint: Dental/Oral Stated complaint: Oral Pain Time Seen by Provider: 09/04/23 18:43 Mode of arrival: ambulatory Limitations: no limitations History of Present Illness HPI Narrative: 38-year-old female presents with concern for left lower dental pain. She reports 2 day history of pain. She denies any injury. She reports she feels like her jaws swollen. She denies fever, headache. She reports left ear pain MD Complaint: tooth pain Related Data Home Medications Medication Instructions Recorded Confirmed ergocalciferol (vitamin D2) 1,250 1,250 mcg PO 2XW 02/06/21 01/14/23 mcg (50,000 unit) capsule norelgestromin 150 mcg-e.estradiol 1 patch transdermal WEEKLY 05/08/22 01/14/23 35 mcg/24 hr weekly transderm patch (Zafemy) azathioprine 50 mg tablet 50 mg PO DAILY 01/14/23 01/14/23 hydroxychloroquine 200 mg tablet 200 mg PO BID 01/14/23 01/14/23 Allergies Allergy/AdvReac Type Severity Reaction Status Date / Time No Known Allergies Allergy Verified 09/04/23 18:35 Review of Systems Review of Systems: CONSTITUTIONAL: Denies malaise, chills, sweats, or fever. EYES: Denies visual changes ENT: Denies rhinorrhea, congestion, sinus pain, otalgia or sore throat. Reports left lower dental pain CARDIOVASCULAR: Denies chest pain, palpitations RESPIRATORY: Denies cough or dyspnea. SKIN: Denies rash or itching. MUSCULOSKELETAL: Denies myalgia. NEUROLOGIC: Denies numbness, weakness, or headache. 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 There is no relevant family history pertinent to the presenting complaint Exam Narrative: GENERAL: Well-appearing, well-nourished, and in no acute distress. HEAD: Normocephalic, atraumatic. EYES: PERRLA, sclera clear ENT: Nares clear, turbinates pink, no rhinorrhea or epistaxis. Mucous membranes moist. TM pearly guillen with sharp light reflex bilaterally; no tragal tenderness. Oropharynx without erythema or lesions. Tonsils not enlarged and without exudate. No broken teeth, caries. Left jaw tenderness NECK: Supple. No lymphadenopathy. CHEST: No respiratory distress. Speaks in full sentences. HEART: Regular rate and rhythm. SKIN: Warm, dry, no visible rash. NEURO: Alert and oriented x3. PSYCH: Normal mood and affect Course Course Emergency Course: Patient is aware of diagnosis, understands and agrees to treatment plan. Anticipatory guidance given. Patient agrees to follow-up as directed and is aware of reasons to seek care at the emergency department. Portions of this record may have been created with voice recognition software Level of Care: Express Care Visit Vital Signs Vital signs: Reviewed. MDM - Dental/Oral MDM Narrative Medical decision making narrative: Patients pain and complaint coupled with physical findings are consistant with dentalgia. There are no focal signs of space occupying lesions that are compromising to the airway; no dysphagia, odynophagia, dysphonia, or dyspnea. No uvular deviation or soft palate edema. Patient is non-toxic appearing. The floor of the mouth is soft with no signs of Raj's An
[2023-09-04 18:34] VITALS: BP 124/74; PULSE 72; RESP 16; TEMP 36.3; O2SAT 100
[2023-09-04 18:36] VITALS: BP 124/74; PULSE 72; RESP 16; TEMP 36.3; O2SAT 100
== END 2023-09-04 18:50 | disposition home or self-care (01) ==
PROVIDERS: Emergency Provider Nurse Practitioner; PCP Physician Assistant
DX: K08.89 Other specified disorders of teeth and supporting structures (principal)
CPT/HCPCS: 99213; G0463

== ENCOUNTER 2024-03-22 15:47 | Emergency (ER) | payer OTHER, SELFPAY ==
[2024-03-22 16:02] VITALS: BP 111/60; PULSE 77; RESP 18; TEMP 36.6; O2SAT 100
--- NOTE | 2024-03-22 16:16 | ED.URI ---
HPI - URI/Sore Throat General Chief Complaint: Upper Respiratory Infection Stated Complaint: Congestion Time Seen by Provider: 03/22/24 16:05 Source: patient and RN notes reviewed Mode of arrival: ambulatory Limitations: no limitations History of Present Illness HPI Narrative: Patient presents today complaining of 3 day history of sore throat, cough, congestion, chills, hoarseness, chest congestion, and intermittent shortness of breath. She has tried Mucinex, throat drops, and not see without much relief and currently rates her pain/10. No history of asthma or COPD. She is a nonsmoker. History of rheumatoid arthritis for which she takes Plaquenil and azathioprine. Related Data Home Medications Medication Instructions Recorded Confirmed ergocalciferol (vitamin D2) 1,250 1,250 mcg PO 2XW 02/06/21 03/22/24 mcg (50,000 unit) capsule norelgestromin 150 mcg-e.estradiol 1 patch transdermal WEEKLY 05/08/22 03/22/24 35 mcg/24 hr weekly transderm patch (Zafemy) azathioprine 50 mg tablet 50 mg PO DAILY 01/14/23 03/22/24 hydroxychloroquine 200 mg tablet 200 mg PO BID 01/14/23 03/22/24 Allergies Allergy/AdvReac Type Severity Reaction Status Date / Time No Known Allergies Allergy Verified 03/22/24 15:49 Review of Systems Review of Systems: CONSTITUTIONAL: Denies body aches, fever, or sweats.+ chills EYES: Denies visual changes, redness, or discharge. ENT: Denies rhinorrhea, or otalgia.+ congestion, sore throat CARDIOVASCULAR: Denies chest pain, palpitations, or edema. RESPIRATORY: + cough, shortness of breath, chest congestion GASTROINTESTINAL: Denies abdominal pain, nausea, vomiting, or diarrhea. GENITOURINARY: Denies dysuria or hematuria. SKIN: Denies rash, itching, or wounds. MUSCULOSKELETAL: Denies back pain, joint pain, or myalgia. NEUROLOGIC: Denies headache, numbness, tingling, or weakness. PSYCH: Denies depression or anxiety. 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 Please see nursing chart for further information. There is no relevant family history pertinent to the presenting complaint Exam Narrative: GENERAL: Well-appearing, well-nourished, and in no acute distress. HEAD: Normocephalic, atraumatic. EYES: EOMI. No redness or drainage. Conjunctivae normal. ENT: Mucous membranes pink and moist. Nares congested. No rhinorrhea. TMs normal bilaterally. Throat normal. Uvula midline. Hoarse voice NECK: Normal AROM. Supple. No lymphadenopathy. CHEST: No respiratory distress. Clear to auscultation. HEART: Regular rate and rhythm. No murmur appreciated. EXTREMITIES: Normal range of motion. No edema. SKIN: Warm, dry, no rash. Capillary refill normal. Normal skin turgor. NEURO: No focal deficits. Alert and oriented x3. Gait steady. PSYCH: Normal affect. No signs of depression or anxiety. Course Course Level of Care: Express Care Visit Vital Signs Vital signs: Vital Signs Temperature 98 F 03/22/24 16:02 Pulse Rate 77 03/22/24 16:02 Respiratory Rate 18 03/22/24 16:02 Blood Pressure 111/60 03/22/24 16:02 Pulse Oximetry 100 03/22/24 16:02 Oxygen Delivery Pura
== END 2024-03-22 16:30 | disposition home or self-care (01) ==
PROVIDERS: Emergency Provider Nurse Practitioner; PCP Physician Assistant
DX: U07.1 COVID-19 (principal); J10.1 Influenza due to other identified influenza virus with other respiratory manifestations; M06.9 Rheumatoid arthritis, unspecified
CPT/HCPCS: 87081; 87426; 87804; 87880; 99213; G0463